=== PATIENT | female | born 1950 | race Caucasian/White ===

== ENCOUNTER 2019-10-08 13:33 | Emergency (ER) | payer MEDICAID, MEDICARE ==
[~2019-10-08] VITALS: Ht 175.3 cm; Wt 64.0 kg
[~2019-10-08 13:33] MED LIST: ALEN10TA10 PO; GABA300C10 PO; GLIM4TAB8 PO; METF10002 PO
--- NOTE | 2019-10-08 13:38 | NUR ---
NO ANSWER X 1 AT THIS TIME.
[2019-10-08 13:45] VITALS: BP 126/43
--- NOTE | 2019-10-08 14:09 | NUR ---
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
--- NOTE | 2019-10-08 14:12 | NUR ---
PT SITTING IN BED, IN C-COLLAR, VSS, NO SIGNS OF DISTRESS. ERP TO BEDSIDE, UPDATED ON POC, WILL CONTINUE TO MONITOR.
== END 2019-10-08 14:41 | disposition home or self-care (01) ==
LOC: ED 14:20
DX: S16.1XXA Strain of muscle, fascia and tendon at neck level, initial encounter (principal); V49.49XA Driver injured in collision with other motor vehicles in traffic accident, initial encounter; Y93.89 Activity, other specified; Y92.410 Unspecified street and highway as the place of occurrence of the external cause; Y99.8 Other external cause status
CPT/HCPCS: 99281

== ENCOUNTER 2019-10-18 12:22 | Emergency (ER) | payer MEDICARE ==
[~2019-10-18] VITALS: Ht 175.3 cm; Wt 63.1 kg
[2019-10-18 12:23] VITALS: BP 141/66
--- NOTE | 2019-10-18 12:40 | NUR ---
PT C/O HITTING FOURTH TOE ON LEFT FOOT ON TUESDAY AFTERNOON. PT CONTINUES TO HURT WHEN AMBULATING. PT CONNECTED TO MONITORING. CALL LIGHT IN REACH. PROVIDER AT BEDSIDE.
--- NOTE | 2019-10-18 13:14 | NUR ---
ALL RESULTS ARE BACK AT THIS TIME. CHART UP FOR RECHECK.
== END 2019-10-18 13:27 | disposition home or self-care (01) ==
LOC: ED 13:23
DX: S90.122A Contusion of left lesser toe(s) without damage to nail, initial encounter (principal); E11.9 Type 2 diabetes mellitus without complications; Z87.891 Personal history of nicotine dependence; W22.8XXA Striking against or struck by other objects, initial encounter; Y93.89 Activity, other specified; Y92.009 Unspecified place in unspecified non-institutional (private) residence as the place of occurrence of the external cause; Y99.8 Other external cause status
CPT/HCPCS: 99283

== ENCOUNTER → 2020-04-18 | Outpatient (CLI) | payer MEDICARE | END | disposition home or self-care (01) | LOC: CFH 14:22 | PROVIDERS: ATTEND Nurse Practitioner Family | DX: K74.60 Unspecified cirrhosis of liver (principal); Z86.19 Personal history of other infectious and parasitic diseases | CPT/HCPCS: 76700 ==

== ENCOUNTER 2020-12-30 10:09 | Outpatient (CLI) | payer MEDICARE ==
[2020-12-30] MEDS ORDERED: SINCALIDE (KINEVAC) 5 MCG ONE (12:14)
[2020-12-30 17:54] LABS: CRYPTOSPORIDIUM ANTIGEN Negative (Negative)
== END 2020-12-30 23:59 | disposition home or self-care (01) ==
LOC: RAD 10:09
PROVIDERS: ATTEND Nurse Practitioner Family
DX: R19.7 Diarrhea, unspecified (principal); R10.30 Lower abdominal pain, unspecified
CPT/HCPCS: 76700; 78227; 82656; 82705; 87046; 87328; 87329; 87427; 87493; 89055; A9537; J2805